=== PATIENT | male | born 1965 | race African-American/Black ===

== ENCOUNTER 2025-03-14 03:05 | Emergency (ER) | payer OTHER, SELFPAY ==
--- NOTE | ~2025-03-14 | CT_ITS ---
CT of the Abdomen and Pelvis: Indication: Abdominal pain Technique: 2.5 mm axial scans were obtained through the abdomen and pelvis following intravenous adm inistration of 100 cc of Omnipaque 350. Dose reduction technique was used on this scan by utilizing a utomated exposure control and iterative reconstruction technique. The dose-length product (DLP) was 6 06.89 mGy-cm. Findings: Scans through the lung bases are unremarkable. The liver, spleen, pancreas, adrenals and kidneys are within normal limits. Cholecystectomy clips are present. There are atherosclerotic calcifications of the aorta. No lymphadenopathy. No bowel obstruction or bowel wall thickening. There is no evidence to suggest acute appendicitis. Images through the pelvis were performed. Urinary bladder unremarkable. No pelvic mass seen. No ascit es. Impression: No significant abnormalities seen. Reviewed, dictated and finalized at [facility]. Impression: No significant abnormalities seen.
--- OUTSIDE RECORDS SUMMARY | 2025-03-14 03:08 | XMS_ITS | Clinical Summary ---
Author Organization [facility] Address [address] [place] [address] Phone Care Team Providers Care Special Skills Officer Name Role Phone Provider, None Primary Care Provider Unavailabl e Provider, None Unavailable Unavailable Allergies Active Allergy Reactions Criticality Noted Date Comments Haloperidol Lactate Other (see Comments) 2015 black out Ibuprofen Rash 10/04/2015 Risperidone Rash 10/03/2015 Medications methocarbamol (ROBAXIN-750) 750 MG Tablet Take 1 Tab by mouth 3 times daily. 30 Tab 0 6 Active Additional Information Patient not taking.Reported on 10/06/2020 cyclobenzaprine (FLEXERIL) 10 MG Tablet Take 1 Tab by mouth 3 times daily as needed for Muscle spasms. 15 Tab 0 6 Active nicotine (NICODERM CQ) 14 MG/24HR PATCH 24 HR 1 Patch by Transdermal route daily. 30 Patch 0 6 Active benztropine (COGENTIN) 1 MG Tablet Take 1 Tab by mouth daily. 60 Tab 0 6 Active Additional Information Patient not taking.Reported on 10/06/2020 sertraline (ZOLOFT) 25 MG Tablet Take 1 Tab by mouth daily. 90 Tab 0 6 Active traZODone (DESYREL) 150 MG Tablet Take 1 Tab by mouth nightly. 30 Tab 0 6 Active venlafaxine (EFFEXOR) 75 MG Tablet Take 1 Tab by mouth 2 times daily. 270 Tab 0 6 Active amitriptyline (ELAVIL) 25 MG Tablet Take 25 mg by mouth nightly. Active QUEtiapine (SEROQUEL) 100 MG Tablet Take 100 mg by mouth nightly. Active QUEtiapine Fumarate (SEROQUEL) 50 MG Tablet Take 50 mg by mouth 2 times daily. Active FLUoxetine HCl 20 MG Tablet Take 20 mg by mouth daily. Active gabapentin (NEURONTIN) 100 MG Capsule Take 100 mg by mouth 3 times daily. Active hydrOXYzine (Vistaril) 25 MG Capsule Take 50 mg by mouth 3 times daily as needed. Active traMADol (ULTRAM) 50 MG Tablet Take 1-2 Tablets by mouth every 6 hours as needed for Moderate or more severe pain or Severe pain. 10 Tablet 1 Active albuterol 108 (90 Base) MCG/ACT Aerosol Solution take 2 Puffs by inhalation every 4 hours as needed. 4 04/18/20 25 Active amLODIPine (NORVASC) 10 MG Tablet Take 10 mg by mouth daily. 2 Active aspirin 81 MG Chewable Tablet Take 81 mg by mouth daily. 9 Active atorvastatin (LIPITOR) 20 MG Tablet Take 20 mg by mouth daily. 2 Active DULoxetine (CYMBALTA) [address] Particles Take 60 mg by mouth daily. Active traMADol (ULTRAM) 50 MG TabletIndicatio ns:Diabetic foot infection (HCC) Take 1 Tablet by mouth every 6 hours as needed for Moderate or more severe pain. 10 Tablet 4 Active Active Problems Problem Noted Date Diagnosed Date Bipolar disease, chronic 10/04/2015 Schizophrenia, schizo-affective 10/04/2015 Tobacco abuse 10/04/2015 Resolved Problems Problem Noted Date Diagnosed Date Resolved Date Pneumonia due to COVID-19 virus 10/07/2020 10/07/2020 Chest pain 10/07/2020 10/07/2020 Overdose 10/04/2015 10/07/2020 Alcohol intoxication 10/04/2015 021 Marijuana abuse 10/04/2015 10/07/2020 Social History Tobacco Use Types Packs/Day Years Used Date Smoking Tobacco: Every Day Cigarettes 0.5 30 Smokeless Tobacco: Never Alcohol Use Standard Drinks/Week Comments Yes 0 (1 standard drink = 0.6 oz pur e alcohol) Sex and Gender Information Value Date Recorded Sex Assigned at Not on file 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 Gender Identity Not on file Sexual Orientation Not on file Last Filed Vital Signs Vital Sign Reading Time Taken Comments Blood Pressure 119/73 06/27/2024 11:30 PM CDT Pulse 69 06/27/2024 10:30 PM CDT Temperature 37 C (98.6 F) 06/27/2024 9:54 PM CDT Respiratory Rate 20 06/27/2024 11:15 PM CDT Oxygen Saturation 100% 06/27/2024 10:30 PM CDT Inhaled Oxygen Concentration - - Weight 74.2 kg (163 lb 9.3 oz) 06/27/2024 9:49 P M CDT Height 172.7 cm (5' 8) 06/27/2024 9:54 PM CDT Body Mass Index 24.87 06/27/2024 9:49 PM CDT Plan of Treatment Health Maintenance Due Date Last Done Comments Hepatitis C Virus (HCV) Screening 1966 Hepatitis B Immunization (1 of 3 - 19+ 3-dose series) 1985 Cologuard 2011 Colonoscopy 2011 Colorectal Cancer Screening 2011 Immunochemical Fecal Occult Blood 2011 Pneumococcal Immunization (50+ years) (2 of 2 - PCV) 05/11/2013 05/11/2012 Zoster Immunization (1 of 2) 02/05/2016 PSA Discussion 2021 SARS-COV-2 Immunization ( season) 2024 08/18/2021, 06/22/2021, 02/07/2021 Influenza Immunization (#1) 05/01/202507/01, 09/08/2021, 07/09/2021, Additional history exists Respiratory Syncytial Virus (RSV) Immunization (Adult) (1 - 1-dose 75+ series) 2041 Pneumococcal Immunization Combined Discontinued 05/11/2012 DTaP/Tdap/Td Immunization Discontinued 2014 TdaP Immunization Completed 2014 Human Papillomavirus (HPV) Immunization Aged Out No longer eligible based on patient's age to complete this topic Meningococcal Immunization (ACWY) Aged Out No longer eligible based on patient's age to complete this topic Rotavirus Immunization Aged Out No lo nger eligible based on patient's age to complete this topic [place] Directives * Full Code (Latest Code Status on File) Date Activated Date Inactivated Comments 10/06/2020 7:22 AM 10/07/2020 1:37 PM CPR-Full Treat ment: FULL ARREST: Attempt Resuscitation/CPR wit intubation and mechanical ventilation. PRE-ARREST: Use entire range of life support measures to stabilize the patient. * Full Code Date Activated Date Inactivated Comments 12/14/2015 11:28 AM 12/15/2015 10:54 PM CPR-Full T reatment: FULL ARREST: Attempt Resuscitation/CPR wit intubation and mechanical ventilation. PRE-ARREST: Use entire range of life support measures to stabilize the patient. * Full Code Date Activated Date Inactivated Comments 10/04/2015 7:40 AM 10/05/2015 5:23 PM Full Code: FULL ARREST: Attempt Resuscitation/CPR and use intubation and mechanical ventilation as indicated. PRE-ARREST: Use all measures to stabilize patient. Care Teams Special Skills Officer Relationship Specialty Start Date End Date Provider, None [place] PCP - General 10/20/15 Provider, None [place] 10/20/15
[2025-03-14 03:11] VITALS: BP 145/95; PULSE 71; RESP 15; TEMP 36.8; O2SAT 100
[2025-03-14 03:25] VITALS: BP 139/98; PULSE 83; RESP 14; O2SAT 99
--- OUTSIDE RECORDS SUMMARY | 2025-03-14 03:50 | XMS_ITS | Clinical Summary ---
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 Care Teams Analytical Data Miner Relationship Specialty Start Date End Date Provider, None [place] PCP - General 10/20/15 Provider, None [place] 10/20/15
[2025-03-14] MEDS: ONDANSETRON INJ 4 MG/2 ML VIAL IV PUSH (03:52)
[2025-03-14] MEDS: MORPHINE SULFATE (*CRX) 4 MG/ML INJ IV PUSH (03:52)
[2025-03-14 03:54] LABS: Hematocrit 43.4 % (42.0-52.0); Hemoglobin 13.7 g/dL (14.0-18.0); Immature Granulocyte Percent A 1.6 % (0-0.5); Lymphocytes Absolute Auto 1.67 K/mm3 (0.9-3.2); Mean Corpuscular HGB Conc 31.6 g/dl (32-36); Mean Corpuscular Hemoglobin 26.4 pg (26-34); Mean Corpuscular Volume 83.6 fl (80-100); Nucleated Red Blood Cells Absolute Auto 0.000 K/mm3 (0.0-0.012); Nucleated Red Blood Cells Perc 0.0 % (0.0-0.2); Platelet Count Result 297 k/mm3 (150-375); Red Blood Count 5.19 M/mm3 (4.6-6.20); White Blood Count 7.1 K/mm3 (4.5-10.0)
[2025-03-14 03:56] LABS: Add Urine Microscopic? NO; Appearance Urine Clear (Clear); Glucose Urine UA 3+ mg/dL (Negative); Leukocyte Esterase Ur Negative LEU/UL (Negative); Nitrate Urine Negative (Negative); Specific Grav Ur 1.019 (1.001-1.035)
[2025-03-14 04:07] LABS: Alanine Aminotransferase 40 U/L (6-50); Albumin Level 4.5 g/dL (3.5-5.1); Alkaline Phosphatase 97 U/L (38-126); Anion Gap 11 mmol/L (4-12); Aspartate Amino Transferase 42 U/L (17-59); Bilirubin,Total 0.3 mg/dL (0.2-1.3); Blood Urea Nitrogen 12 mg/dL (9-20); Calcium 9.7 mg/dL (8.4-10.2); Carbon Dioxide 26 mmol/L (22-30); Chloride 97 mmol/L (98-107); Estimated CRCL calculation 82 ml/min; Estimated Glomerular Filt Rate > 60; Glucose 312 mg/dL (65-110); Lipase 483 U/L (23-300); Magnesium 2.2 mg/dL (1.6-2.3); Potassium 4.4 mmol/L (3.4-5.0); Sodium 134 mmol/L (137-145); Total Protein 8.0 g/dL (6.3-8.2)
--- NOTE | 2025-03-14 04:11 | ED_ITS ---
HPI - Abdominal Pain General Chief Complaint: Abdominal Pain Stated Complaint: sciatic nerve katerina, abd pain, sob due to pain Time Seen by Provider: 03/14/25 03:09 History of Present Illness HPI narrative: Patient is a 60-year-old male who presents emergency department this evening complaining of right hip pain and abdominal pain. Patient states that he was told that his right hip is bone to bone secondary to arthritis and he needs a total hip replacement. States that he took tramadol around midnight with no relief of his pain. Patients abdomen was noted to be distended and when asked regarding this, patient states that it is not new. Admits that he does have a history of pancreatitis secondary to alcohol abuse but denies any history of cirrhosis. Currently denying any chest pain or shortness of breath, recent illness, fevers or chills. There are no additional modifying, alleviating, or precipitating factors at this time. Related Data Allergies Allergy/AdvReac Type Severity Reaction Status Date / Time haloperidol Allergy Mild BLACKOUT Verified 10/25/10 00:45 ibuprofen Allergy Mild RASH Verified 10/25/10 00:45 risperidone Allergy Mild PANCREATITI Verified 10/25/10 00:45 S HALOPERIDOL LACTATE Allergy Mild BLACKOUT Uncoded 10/25/10 00:45 Review of Systems 2 Review of Systems: All systems are reviewed and are negative unless stated otherwise in the HPI. Exam 2 Narrative: General: Alert, awake, afebrile, in no acute distress. HEENT: PERRL, no rhinorrhea, no post nasal drip, oropharynx clear. Neck: Trachea midline, no JVD, no lymphadenopathy. Cardiovascular: Regular rate and rhythm, no murmurs, rubs or gallops, no peripheral edema. Respiratory: Clear to auscultation bilaterally, no tachypnea, no wheezing, no rhonchi, no rubs, no respiratory distress. Abdomen: Hard, nontender, distended, no rebound, no guarding, no peritoneal signs. Musculoskeletal: No joint swelling or deformity, normal muscle tone. Skin: No rashes or petechia, no signs of infection. Psychiatric: Alert and oriented, normal behavior and judgment for situation. Neurological: Alert and oriented to person, place, and time. Follows all commands. No focal deficits, speech is clear and fluent. Course Vital Signs Vital signs: Vital Signs Temperature 98.3 F 03/14/25 03:11 Pulse Rate 71 07/15/25 03:11 Respiratory Rate 15 03/14/25 03:11 Blood Pressure 145/95 H 03/14/25 03:11 Pulse Oximetry 100 03/14/25 03:11 Oxygen Delivery Room Air 03/14/25 03:11 Temperature 98.3 F 03/14/25 03:11 Pulse Rate 87 03/14/25 04:46 Respiratory Rate 17 03/14/25 04:46 Blood Pressure 138/86 03/14/25 04:46 Pulse Oximetry 99 03/14/25 04:46 Oxygen Delivery Room Air 03/14/25 03:11 MDM - Abdominal Pain MDM Narrative Medical decision making narrative: The patient was evaluated by myself in the emergency department. History is obtained from patient who is an independent historian and physical exam was performed. External medical records were reviewed at this time. IV was established and pertinent tests were ordered. Patient was administered 4 mg IV morphine for pain and 4 mg of IV Zofran for nausea. Laboratory results obtained revealing lipase of 483 otherwise unremarkable. Imaging studies obtained included CT abdomen and pelvis with IV contrast which was independently interpreted by me revealing no acute process, no fractures noted in the pelvis, which is pending final radiology interpretation. Differential diagnosis considerations include arthritis, sciatica, pancreatitis, bowel obstruction, liver failure ascites cirrhosis with ascites. Comorbidities impacting this visit include history of alcohol abuse. I have evaluated and discussed social determinants of health with the patient that could potentially impact subsequent diagnosis and treatment plans. On repeat assessment of the patient, reevaluation revealed that the patient is doing well and is in no acute distress. Patient symptoms have improved since he arrived to our emergency department. Repeat vital signs were all reviewed and noted to be stable. Differential diagnosis and treatment plan were discussed with the patient at bedside. Patient agrees with discussion and after shared medical decision making agrees with discharge. All questions were answered to the patient's satisfaction. Patient will follow up with Orthopedics in 3-5 days. Patient was provided with strict return precautions and instructed to return to the emergency department if any new or worsening symptoms develop. The patient was discharged in stable condition. Lab Data 03/14/25 03:32 03/14/25 03:32 Labs: Lab Results 03/14/25 03/14/25 Range/Units 03:32 03:43 WBC 7.1 (4.5-10.0) K/mm3 RBC 5.19 (4.6-6.20) M/mm3 Hgb 13.7 L (14.0-18.0) g/dL Hct 43.4 (42.0-52.0) % MCV 83.6 (80-100) fl MCH 26.4 (26-34) pg MCHC 31.6 L (32-36) g/dl RDW 16.3 H (11.5-14.5) % Plt Count 297 (150-375) k/mm3 MPV 10.6 H (7.4-10.4) fl Immature Gran % (Auto) 1.6 H (0-0.5) % Neut % (Auto) 58.8 (45.5-73.1) % Lymph % (Auto) 23.6 (18.3-44.2) % Porter % (Auto) 12.9 H (2.6-8.5) % Eos % (Auto) 2.7 (0-4.4) % Baso % (Auto) 0.4 (0.2-1.2) % Lymph # (Auto) 1.67 (0.9-3.2) K/mm3 Porter # (Auto) 0.9 H (0.1-0.6) K/mm3 Eos # (Auto) 0.2 (0-0.3) K/mm3 Baso # (Auto) 0.0 (0.0-0.1) K/mm3 Abs Immat Gran (auto) 0.11 H (0.00-0.031) K/mm3 Absolute Neuts (auto) 4.2 (1.3-6.7) K/mm3 Absolute Nucleated RBC 0.000 (0.0-0.012) K/mm3 Nucleated RBC % 0.0 (0.0-0.2) % Sodium 134 L (137-145) mmol/L Potassium 4.4 (3.4-5.0) mmol/L Chloride 97 L (98-107) mmol/L Carbon Dioxide 26 (22-30) mmol/L Anion Gap 11 (4-12) mmol/L BUN 12 (9-20) mg/dL Creatinine 0.85 (0.7-1.3) mg/dL Estim Creat Clear Calc 82 ml/min Estimated GFR > 60 (59 - ) Glucose 312 H (65-110) mg/dL Calcium 9.7 (8.4-10.2) mg/dL Magnesium 2.2 (1.6-2.3) mg/dL Total Bilirubin 0.3 (0.2-1.3) mg/dL AST 42 (17-59) U/L ALT 40 (6-50) U/L Alkaline Phosphatase 97 (38-126) U/L Total Protein 8.0 (6.3-8.2) g/dL Albumin 4.5 (3.5-5.1) g/dL Lipase 483 H (23-300) U/L Urine Color Yellow (Yellow) Urine Appearance Clear (Clear) Urine pH 5.5 (5.0-9.0) Ur Specific [place] 1.019 (1.001-1.035) Urine Protein Negative (Negative) mg/dL Urine Glucose (UA) 3+ H (Negative) mg/dL Urine Ketones Negative (Negative) mg/dL Ur Blood (Man) Negative (Negative) Urine Nitrate Negative (Negative) Urine Bilirubin Negative (Negative) Urine Urobilinogen 1.0 (<2.0) mg/dL Leukocyte Esterase Rfl Negative (Negative) ALAN/UL Discharge Plan Discharge Clinical Impression: Chronic right hip pain, Abdominal pain Patient Disposition: Home Condition: Improved Instructions: Antibiotic Form, Abdominal Pain (ED), Hip Pain (ED) Additional Instructions: Please follow-up with your orthopedic surgeon you were provided with today within the next 3-5 days. Return emergency department if any new or worsening symptoms develop. Patient Language: Hebrew Prescriptions: New hydrocodone-acetaminophen 5-325 mg tablet 1 tablet PO Q8H PRN (Reason: pain) Qty: 8 0RF Follow-up/Referrals: PHYSICIAN,DEPARTMENT MANAGER [Primary Care Provider] - Beau Wooten MD [Physician] - 3 Days Time of Disposition: 05:41
[2025-03-14 04:46] VITALS: BP 138/86; PULSE 87; RESP 17; O2SAT 99
[2025-03-14 06:10] VITALS: BP 138/86; PULSE 87; RESP 17; O2SAT 99
== END 2025-03-14 06:12 | disposition home or self-care (01) ==
PROVIDERS: Emergency Provider Emergency Medicine
DX: M25.551 Pain in right hip (principal); R10.9 Unspecified abdominal pain; M16.11 Unilateral primary osteoarthritis, right hip
CPT/HCPCS: 36415; 74177; 80053; 81003; 83690; 83735; 85025; 96374; 96375; 99284; J2270; J2405; Q9967

== ENCOUNTER 2025-05-23 10:59 | Emergency (ER) | payer OTHER, SELFPAY ==
--- NOTE | ~2025-05-23 | XR_ITS ---
EXAMINATION: XR chest 1V, 05/23/2025 11:50 CDT HISTORY: Fall COMPARISON: No comparisons available. Technique: Single view. Findings: The lungs are clear, no effusion. No pneumothorax. Heart is normal size. Mediastinal and hilar contours are within normal limits. Bony thorax no acute abnormality. Impression: No acute cardiopulmonary abnormality. Reviewed, dictated and finalized at location A. Impression: No acute cardiopulmonary abnormality.
--- NOTE | ~2025-05-23 | CT_ITS ---
CT HEAD NON-CONTRAST Clinical History: Fall Comparison: None Technique: Unenhanced axial images skull base to vertex Coronal, sagittal reformats CT images acquired with automatic exposure control for dose reduction DLP: 605 mGy-cm Findings: Sulci, ventricles: Unremarkable. No intracerebral hemorrhage. No evidence acute territorial infarct. No mass effect, midline shift. Bony calvarium intact. Visualized paranasal sinuses: Ethmoid disease. Mastoid air cells: Clear. IMPRESSION: 1. No acute intracranial findings. Reviewed, dictated and finalized at location R.
--- NOTE | ~2025-05-23 | XR_ITS ---
EXAMINATION: XR hip RT 2V w AP pelvis, 05/23/2025 11:50 CDT HISTORY: Fall, hip deformity COMPARISON: No comparisons available. Findings: No acute fracture or malalignment. No significant degenerative changes. Soft tissues unremarkable. Impression: No acute fracture or malalignment. Reviewed, dictated and finalized at location A. Impression: No acute fracture or malalignment.
--- NOTE | ~2025-05-23 | CT_ITS ---
EXAMINATION: CT cervical spine wo con COMPARISON: None HISTORY: Fall TECHNIQUE: Axial images were obtained through the spine without IV contrast. Coronal, sagittal reconstruction images were obtained from the axial views. CT scan performed using dose optimization techniques including the following automated exposure control; adjustment of mA and/or kV; use of iterative reconstruction technique. Automatic exposure control was used to reduce radiation dose. Permanent radiation dose record is archived to PACS. FINDINGS: Moderate loss of vertebral height, no acute fracture or subluxation. Moderate loss of disc height at C2-3, C4-5 C5-6 with anterior osteophyte formation with multilevel mild to moderate canal and foraminal stenosis. Soft tissues unremarkable. Nonspecific thickening of the esophagus noted. There is emphysematous change noted of the lung apices bilaterally with bilateral areas of apical pleural scarring. Impression: No acute abnormality. Reviewed, dictated and finalized at location A. Impression: No acute abnormality.
[2025-05-23 11:05] VITALS: BP 152/93; PULSE 81; RESP 17; TEMP 36.6; O2SAT 98
[2025-05-23 11:16] VITALS: BP 149/90; PULSE 87; RESP 16; TEMP 36.6; O2SAT 96
--- OUTSIDE RECORDS SUMMARY | 2025-05-23 11:46 | XMS_ITS | Encounter Summary ---
Author Organization [facility] Address [address] [place] [address] Care Team Providers Care Low Altitude Air Defense Officer Name Role Phone Fabian Philip MD Unavailable [phone] Jose Gaines MD Primary Care Provider [phone] Janeth Galeano Unavailable Unavailable Miscellaneous, Not In File Unavailable Unava ilable Miscellaneous, Not In File Primary Care Provider Unavailable No, Physician Primary Care Provider [phone] Miscellaneous, Not In File Primary Care Provider Unavailable Unknown, Notinfile Primary Care Provider Unavail able Bonnie Mg TOPOLOGY PROFESSOR Primary Care Provider [phone] Jose Gaines MD Primary Care Provider [phone] Unknown, Notinfile Primary Care Provider Unavail able Rich Joiner TOPOLOGY PROFESSOR Primary Care Provider + [phone] No, Physician Primary Care Provider [phone] Jeovany Rabago MD Primary Care Provider [phone] Encounter Details Date Type Department Care Team (Late st Contact Info) Description 09/25/2020 Documentation [facility] [address] [place] [id number] Hemalatha Pollack, JOIE Social History Tobacco Use Types Packs/Day Years Used Date Smoking Tobacco: Every Day Cigarettes 0.1 15 Smokeless Tobacco: Never Alcohol Use Standard Drinks/Week Comments Yes 12 (1 standard drink = 0.6 oz pure alcohol) Patient reports he drinks a pint of vodka daily along with 4 28oz cans of malt liquor beer Social Connection and Isolation Panel Answer Date Recorded In a typical week, how many times do you talk on the phone with family, friends, or neighbors? Three times a week 10/30/2019 How often do you get togethe r with friends or relatives? Three times a week 10/30/2019 How often do you attend chur ch or denominational services? More than 4 times per year 10/30/2019 Do you belong to any clubs o r organizations such as zoroastrian groups, unions, fraternal or athletic groups, or school groups? Yes 10/30/2019 How often do you attend meet ings of the clubs or organizations you belong to? More than 4 times per year 10/30/2019 Are you , , di vorced, , never , or living with a partner? Never 10/30/2019 AUDIT-C Answer Date Recorded Frequency of Alcohol Consumption Not on file 10/30/2019 Q2: How many drinks containi ng alcohol do you have on a typical day when you are drinking? 7 to 9 0 Q3: How often do you have si x or more drinks on one occasion? Daily or almost daily 10/30/2019 Overall Financial Resource Strain (CARDIA) Answe r Date Recorded How hard is it for you to pa y for the very basics like food, housing, medical care, and heating? Very hard 10/30/2019 PHQ-2 Answer Date Recorded PHQ-2 Total Score (If total score is 3 or more points, staff should administer the PHQ-9) 0 09/27/2020 Hunger Vital Sign Answer Date Recorded Within the past 12 months, y ou worried that your food would run out before you got the money to buy more. Often true 10/30/19 20 Within the past 12 months, t he food you bought just didn't last and you didn't have money to get more. Often true 10/30/2019 PRAPARE - Transportation Answer Date Re corded In the past 12 months, has l ack of transportation kept you from medical appointments or from getting medications? Yes 08/2019 In the past 12 months, has l ack of transportation kept you from meetings, work, or from getting things needed for daily living? Yes 10/30/2019 Education Answer Date Recorded What is the highest level of school you have completed or the highest degree you have received? 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 Patient has had documented SpO2 < 94% and required supplemental oxygen. Based on the original positive testing date the patient is first eligible for COVID:Recovered evaluation on 10/02/20. Unable to determine reason for initial testing from current documentation. ELIZA Taylor 09/15/2020 09/15/2020 10/12/2020 3 :05 AM DISCHARGE SPECIALIST COVID: Recovered Comment:Added based on recent COVID infection. 10/12/2020 11/29/2020 02/09/2021 3:05 AM C DT COVID: Suspected 07/15/2021 07/15/2021 07/15/2021 11:09 PM DISCHARGE SPECIALIST COVID: Suspected 09/07/2021 09/07/2021 09/07/2021 2:48 AM DISCHARGE SPECIALIST COVID: Suspected 04/08/2024 04/08/2024 04/08/2024 7:50 AM CDT COVID: Suspected 04/18/2024 04/18/2024 04/18/2024 3:51 AM CDT documented as of this encounter Care Teams Low Altitude Air Defense Officer Relationship Specialty Start Date End Date Jose Gaines MD PCP - General 03/07/19 11/28/20 Miscellaneous, Not In File PCP - General 11/29/20 04/16/21 No, Physician PCP - General 04/17/21 07/14/21 Miscellaneous, Not In File PCP - General 07/15/21 07/16/21 Unknown, Notinfile PCP - General 07/17/21 07/21/21 Bonnie Mg NP [address] [place] [address] PCP - General 07/22/21 09/06/21 Jose Gaines MD PCP - General 09/07/21 12/15/21 Unknown, Notinfile PCP - General 12/16/21 09/28/22 Rich Joiner TOPOLOGY PROFESSOR [address] [facility] [place] [address] PCP - General Pain Management 09/29/22 04/12/25 No, Physician PCP - General 04/13/25 05/02/25 Jeovany Rabago MD [address] [facility] [place] [address] PCP - General Internal Medicine 05/03/25 Fabian Philip MD Consulting Physician Gastroenterology 08/25/18 Janeth Galeano Photovoltaic Panel Installer Addiction Medicine 08/21/20 Miscellaneous, Not In File 09/28/20 documented as of this encounter
--- OUTSIDE RECORDS SUMMARY | 2025-05-23 11:46 | XMS_ITS | Clinical Summary ---
Author Organization [facility] Address [address] [place] [address] Care Team Providers Care Dramatic Director Name Role Phone Fabian Philip MD Unavailable Janeth Galeano Unavailable Unavailable Miscellaneous, Not In File Unavailable Unava ilable Jeovany Rabago MD Primary Care Provider [phone] Allergies Active Allergy Reactions Criticality Noted Date Comments Haloperidol Ibuprofen Hives,Rash Medium Risperidone Unknown 08/04/2018 Medications amLODIPine (NORVASC) 10 mg tabletIndicati ons:hypertensi on Take 1 tablet (10 mg total) by mouth daily 30 tablet 2 Active atorvastatin (LIPITOR) 20 mg tabletIndicati ons:hyperlipid emia Take 1 tablet (20 mg total) by mouth daily 30 tablet 11 2 Active traZODone (DESYREL) 100 mg tabletIndicati ons:Insomnia Take 1 tablet (100 mg total) by mouth nightly as needed for sleep 30 tablet 2 Active nicotine polacrilex (NICORETTE) 2 mg gumIndications :Smoking Cessation Chew 1 each (2 mg total) every hour as needed for smoking cessation [address] (CYMBALTA) 60 mg capsule Take 1 capsule (60 mg total) by mouth daily Active lidocaine (LIDODERM) 5 % Place 1 patch on the skin daily Remove & discard patch within 12 hours or as directed by MD. Active gabapentin (NEURONTIN) 300 mg capsule Take 1 capsule (300 mg total) by mouth 2 (two) times a day 4 Active OLANZapine (ZyPREXA) 10 mg tablet Take 1 tablet (10 mg total) by mouth nightly at bedtime. 4 Active lidocaine (LIDODERM) 5 % Place 1 patch on the skin daily Remove & discard patch within 12 hours or as directed by . 20 patch 4 Active albuterol HFA (PROVENTIL HFA,VENTOLIN HFA,PROAIR HFA) 90 mcg/actuation inhaler Inhale 2 puffs every 4 (four) hours as needed for shortness of breath or wheezing 1 each 4 Active traMADoL (ULTRAM) 50 mg tabletIndicati ons:Pain Take 1 tablet (50 mg total) by mouth every 6 (six) hours as needed for pain for up to 3 doses 3 tablet 4 Active metFORMIN (GLUCOPHAGE) 500 mg tablet Take 1 tablet (500 mg total) by mouth 2 (two) times a day with meals 60 tablet 4 Active acetaminophen- codeine (TYLENOL with CODEINE #3) 300-30 mg per tabletIndicati ons:Right wrist sprain, initial encounter Take 1 tablet by mouth every 6 (six) hours as needed for pain Take as directed with food p.r.n. pain. Collaborating physician Dale Devries MD 15 tablet 4 Active Active Problems Problem Noted Date Diagnosed Date Right wrist sprain, initial encounter 06/13/2024 Elevated serum creatinine 04/01/2024 Assessment & Plan (04/01/2024 4:48 AM CDT): - unclear what his baseline Cr is. Most recent Cr in our system is from October 2022, was 0.83 at that time. In care everywhere, labs from October 2023 showed creatinine 1.2 - UA showing 4+ glucose but no other abnormalities - will check urine sodium and urine creatinine along with renal ultrasound - start IV fluids with NS 100 mL/hr - trend BMP Right hip pain 04/01/2024 Assessment & Plan (04/01/2024 4:48 AM CDT): - chronic, x-ray showing severe OA Stimulant use disorder 12/18/2021 Assessment & Plan (12/19/2021 10:21 AM CDT): Patient has a well known hx of stimulant use including meth and cocaine. He has use more and longer than intended, tolerance, craving, withdrawal sx, negative effects on his wellbeing and continued use despite knowledge of effects. He has failed attempts to quit. He now denies using stimulants, despite confronting his with his UDS results. - we will offer psycho-education and VA for cessation Assessment & Plan (12/18/2021 2:38 PM CDT): Patient has a well known hx of stimulant use including meth and cocaine. He has use more and longer than intended, tolerance, craving, withdrawal sx, negative effects on his wellbeing and continued use despite knowledge of effects. He has failed attempts to quit. He now denies using stimulants, despite confronting his with his UDS results. - we will offer psycho-education and VA for cessation Somnolence 09/15/2020 Assessment & Plan (04/01/2024 4:49 AM CDT): - unclear why he is so somnolent and immediately falls back to sleep after awakening. He received 1 dose of Dilaudid shortly after arriving to ED but no other sedating medicines. Does not appear to be in DKA - check VBG, urine drug screen Assessment & Plan (09/15/2020 9:26 AM DIE [employer]K[facility] [employer]AMPING): Cause not yet clear, but likely related to benzodiazepine use as patient's urine drug screen was positive for this along with marijuana. Notably ethanol level was undetectable. Will attempt to obtain records from [facility] about recent stay as patient is unable to provide a history about what was done there or what occurred after he was discharged shortly before being brought to the ED. There may also be fatigue due to COVID-19 contributing to symptoms as well. NSVT (nonsustained ventricular tachycardia) 07/31 Assessment & Plan (04/01/2024 4:48 AM CDT): - stable now, unclear if patient takes metoprolol at home Nonobstructive atherosclerosis of coronary arter y 08/15/2020 Severe alcohol use disorder 01/31/2020 Assessment & Plan (12/19/2021 10:20 AM CDT): Patient has a hx of alcohol use with use more and longer than intended, tolerance, craving, withdrawal sx (no known DTs or seizures), negative use on his wellbeing and continued use despite knowledge of effects. He has failed attempts to quit. - continue GUILLE and treat withdrawal as needed - thiamine and FA PO every day - appreciate SW assistance for SIENNA tx options Assessment & Plan (12/18/2021 2:32 PM CDT): Patient has a hx of alcohol use with use more and longer than intended, tolerance, craving, withdrawal sx (no known DTs or seizures), negative use on his wellbeing and continued use despite knowledge of effects. He has failed attempts to quit. - start GUILLE and treat withdrawal as needed - thiamine and FA PO every day - appreciate SW assistance for SIENNA tx options Common bile duct calculus 06/26/2019 Overview (06/28/2019): Added automatically from request for surgery [id number] Substance induced mood disorder (CMS/HCC) 2018 Assessment & Plan (12/19/2021 10:20 AM CDT): Fair progress PLAN - continue voluntary admission - treat alcohol withdrawal as needed - observe on the unit and adjust the plan as needed - appreciate SW and medical team recs Assessment & Plan (12/18/2021 2:17 PM CDT): Mr. Cruz is a 56 yo M with a hx of meth and cocaine use disorders, alcohol use disorder, ASPD, admitted for reports SI. Patient has a well documented hx of substance use, including alcohol, cocaine and meth, with past admission for SI, thought to be related to substance use and malingering as opposed to a mood dx. He now reports feeling agitated, having SI and HI, both non specific with no plan or intent, and feeling psychotic, which he describes as having full interactive conversations with people, non consistent with true psychosis. He does not have objective signs of psychosis on exam and has no evidence of disorganized thought process or behaviors. His irritability is consistent with substance induced sx versus his well documented personality disorder (ASPD). We will assign the diagnosis of substance induced mood disorder for now. Risk assessment: patient has recent SI. Admission is appropriate. PLAN - continue voluntary admission - we will no start standing medications at this time - treat alcohol withdrawal as needed - observe on the unit and adjust the plan as needed - appreciate SW and medical team recs Alcohol withdrawal syndrome without complication 11/02/2018 Assessment & Plan (11/03/2018 10:45 PM [facility] [facility] [employer]): Currently admitted for detox Assessment & Plan (11/02/2018 1:22 PM DIE [employer]AMPING): . Antisocial personality disorder (CMS/HCC) 2018 Assessment & Plan (04/01/2024 4:44 AM CDT): - unclear if adherent to treatment Assessment & Plan (12/19/2021 10:20 AM CDT): Patient has well documented hx of ASPD with a chronic and pervasive hx of mood reactivity and irritability, behavioral dysregulation, inability to conform to social norms and disregard for safety of self and others with no remorse. He now has manipulative behaviors and attitude on exam. He threatens to strangle people but does not have specific target. He reports that things will be ugly if he doesn't get what he wants. This is consistent with his ASPD. Assessment & Plan (12/18/2021 2:29 PM CDT): Patient has well documented hx of ASPD with a chronic and pervasive hx of mood reactivity and irritability, behavioral dysregulation, inability to conform to social norms and disregard for safety of self and others with no remorse. He now has manipulative behaviors and attitude on exam. He threatens to strangle people but does not have specific target. He reports that things will be ugly if he doesn't get what he wants. This is consistent with his ASPD. Assessment & Plan (10/31/2019 8:58 AM D[employer]AMPING): Well documented ASPD. His poor coping skills, manipulative behaviors are difficult to modify due to his ASPD. Assessment & Plan (09/10/2018 2:21 PM DIE [employer]AMPING): This patient has a childhood history consistent with conduct disorder, evidenced by fighting, stealing, juvenile mcc stints, and a lack of remorse for his actions. This has developed into a history of ASPD, both by report and public records detailing his extensive sentences in the [facility] system for attempted murder and assault. He continues to have no remorse for his actions despite violating the rights of others. On his past and present hospitalizations, we have exhaustively documented in the H&P his history of deceitfulness, impulsivity, failure to plan ahead, irritability, and aggression. This culminates in reckless disregard for the safety of others, evidenced by his threats during interview today that if he does not get what he wants, he will do destructive things and injure people. The patient is clearly motivated by secondary gain today (longterm, abusable medications he can use to overdose on to achieve future secondary gain objectives). We have reviewed all of his many ED visits in our hospital system. He exhibits no convincing symptoms of delusions, hallucinations, or disorganized thought/behavior on admission. There is no convincing evidence of sustained poor mood, insomnia, anergia, amotivation, guilt, or concentration deficits explained by MDD on the present admission or in past medical records in the [facility] system. There is also no convincing evidence of sustained increase in energy, irritability, racing thoughts, grandiosity, and decreased perceived need for sleep consistent with justice. We thus believe that antisocial personality disorder (ASPD) is the primary etiology for the patient's presentation to [facility], for which there is no successful medical treatment. Psychotherapeutic and psychopharmacologic agents have been demonstrated to have limited efficacy, and there is also no evidence for short inpatient psychiatric admission (which [facility] is equipped to offer) playing any significant role in modifying the patient's psychopathology. The patient presently has no motivation in stopping his maladaptive behaviors apart from blaming others, making continued threats to his medical team (I.e., to harm others, to kristina his doctors for abuse), and seeking medications that he could potentially use to overdose. We believe that there is risk of reinforcing the patient's behavior and deceitfulness (which is likely to pose harm to the staff and [facility] population [facility]) is greater than the minimal benefit the patient will receive from remaining hospitalized. He is NOT appropriate for continued inpatient admission. He has agreed to discharge at this time via taxi to Medicaid office at [place], [place] and has been educated about longterm resources, as well as behavioral health resources at [facility]. Risk Assessment: At this time, the patient is at HIGH acute risk of harm to self and others. His chronic risk is HIGH as well. Biological risk factors including severe personality pathology (ASPD), substance use, chronic assaultive and suicidal ideation, extensive childhood abuse/trauma, incarceration history, unemployment, homelessness, and overall chronic social instability. While he presently has not exhibited any signs or symptoms of self-harm with clear plan, the patient's impulsivity could certainly lead him to escalate lethality (possibly inadvertently) in the future. Plan: -We will discharge patient today via taxi given inclement weather -Coordinate outpatient care with [facility] -No indication for psychiatric medications at this time Intentional overdose of salina ctive serotonin reuptake inhibitor (SSRI) 07/21/2018 Assessment & Plan (07/21/2018 12:53 AM DIE MAK[facility] [employer]AMPING): Patient took 12 Lexapro pills. He is not currently suicidal. He states he does have suicidal thoughts on and off. Continue with suicide precautions. Psych has been consulted will await their recommendations. Continue to monitor. Poison Control is aware of patient. Chronic back pain 07/21/2018 Assessment & Plan (08/21/2018 10:16 PM DIE MAKER [employer] STAMPING): Holding any sedating medications including tramadol Assessment & Plan (07/21/2018 12:46 AM DIE MAK[employer]AMPING): Patient is allergic to ibuprofen. He states it gives him a rash. Patient states he takes tramadol normally for his back pain. Will offer patient heating pad for now to see if his pain improves. Patient is okay with this plan. Type 2 diabetes mellitus wit h hyperglycemia, without long-term current use of insulin 07/21/2018 Assessment & Plan (04/01/2024 4:50 AM CDT): - there are no diabetic medications in his dispense report. He denies ever taking insulin - will check A1c - sliding scale Humalog for now Assessment & Plan (09/15/2020 9:46 AM DIE [employer] STAMPING): Start sliding scale insulin and monitor glucose, can basal/bolus regimen if necessary. Assessment & Plan (11/03/2018 10:46 PM DIE MAKER [employer]CH STAMPING): Agree with SS coverage Assessment & Plan (08/21/2018 10:07 PM DIE MAKER [employer]CH STAMPING): Patient on metformin. Will start on low dose SS. Assessment & Plan (08/06/2018 4:14 AM DIE MA[employer] STAMPING): Will hold oral hypoglycemics. Patient is currently NPO Start on low-dose insulin sliding scale Assessment & Plan (07/21/2018 12:43 AM DIE MAKER [employer]CH STAMPING): Patient takes metformin. Sugars are controlled. Continue monitor on low-dose sliding scale. Hypertension Assessment & Plan (05/23/2020 4:18 PM CDT): Blood pressure presently acceptable. Will continue home metoprolol. Will monitor. Adjust treatment as needed. 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 Unable to assess for symptoms because of patient somnolence, but he has developed a fever. Good SpO2 on room air, will monitor respiratory function. Hyponatremia 09/15/2020 12/18/2021 Assessment & Plan (09/15/2020 9:31 AM DIE MAK[employer] STAMPING): Most likely hypovolemic, will start maintenance IV fluids while he is extremely somnolent and unable to take p.o. intake. Continue to monitor. Volume depletion 09/15/2020 12/18/2021 Depression 09/15/2020 12/18/2021 Assessment & Plan (09/15/2020 9:49 AM DIE MAKER [employer]CH STAMPING): Home medication list does not include the trazodone, Zyprexa, Effexor, and Atarax that he was prescribed prior to his last admission at [facility] after he was admitted for an intentional overdose. It is unknown if these medications have been restarted since that time (he was discharged directly to [facility] after 24 hours for observation that time) or if these medications and/or doses have changed since then. Will attempt to obtain records from [facility]. Suicide attempt ([facility]) 08/15/2020 Marijuana use 01/31/2020 12/18/2021 Choledocholithiasis 06/19/2019 12/19/19 22 Alcohol abuse 06/19/2019 12/18/2021 Assessment & Plan (05/23/2020 4:17 PM CDT): Known history of alcohol abuse. Patient with positive alcohol level on presentation. Will monitor for any signs of withdrawal. Will treat as needed. Pneumonia due to infectious organism 11/03/2018 12/18/2021 Assessment & Plan (11/03/2018 10:45 PM DIE MAKER [employer]CH STAMPING): Agree with treatment for CAP. However, pt has risk for aspiriation, flagyl added and ST ordered. Thank you for the consult, will follow pt with you Exposure to environmental co ld, initial encounter 09/27/2018 12/18/2021 Right foot sprain, initial encounter 09/27/2018 12/18/2021 Hallux valgus, right 09/27/2018 022 Polysubstance abuse ([facility]) 07/21/2018 12/18/2021 Assessment & Plan (05/23/2020 4:17 PM CDT): Urine drug screen positive for benzodiazepines and cannabinoids. Patient with suicide attempt as noted above. Will continue to monitor. Await psychiatry consultation. Assessment & Plan (10/31/2019 8:58 AM DIE MAKER BENCH STAMPING): Patient requires Rehab. Assessment & Plan (08/21/2018 10:15 PM DIE MAKER BENCH STAMPING): Patient denies any street drug use however when asked why urine drug screen is positive for marijuana and cocaine patient states he might have used some when he was depressed. He states he would likely of smoked it. He does not remember when he used it. Assessment & Plan (08/06/2018 4:13 AM DIE MAKER [employer]ENCH STAMPING): Patient with a history of polysubstance abuse. Urine drug screen positive for cocaine metabolites and cannabinoids. Start on Ativan as needed for withdrawal symptoms Assessment & Plan (07/21/2018 12:44 AM DIE MAKER [employer]CH STAMPING): Patient admits to marijuana and crack cocaine use yesterday. Transaminitis 07/21/2018 12/18/2021 Assessment & Plan (08/06/2018 4:15 AM DIE MA[employer] STAMPING): Slightly elevated AST levels noted. Monitor liver function tests Poison Control services on board. Supportive care Assessment & Plan (07/21/2018 12:43 AM DIE [employer]AMPING): Likely due to alcohol use. Patient had 48 oz of beer with 2 shots of whiskey yesterday. Will continue to monitor. Will check a GGT and hepatitis panel. Generalized anxiety disorder 12/04/2013 12/18/2021 Intentional drug overdose Assessment & Plan (05/23/2020 4:16 PM CDT): Intentional overdose of venlafaxine and Zyprexa as noted above. Will continue to monitor. Poison control following. Assessment & Plan (08/21/2018 10:19 PM DIE MAK[employer] STAMPING): Patient states he took 13-14 tabs of Zyprexa that was left over medication from the past. He states he is still having thoughts of suicide. Currently has a health safety specialist at bedside. Will consult psych. Poison Control was notified and recommended repeat EKG to monitor QTC. If normal, no further workup needed from their point of view. Assessment & Plan (08/06/2018 4:16 AM DIE MAK[employer]CH STAMPING): Patient presents today with recurrent suicide attempt by drug ingestion. Currently somnolent. Will get psych evaluation Suicide precautions Suicide attempt by drug ingestion 12/18/2021 Assessment & Plan (05/23/2020 4:16 PM CDT): Intentional overdose of Zyprexa and venlafaxine. Poison control contacted. Patient currently on telemetry with no current changes. Initial EKG did have some QT prolongation. Did receive IV bicarb per poison control recommendation. Will continue suicide precautions. Psychiatry consulted and await consult. Will need psychiatric placement. Non-traumatic rhabdomyolysis 12/18/2021 Assessment & Plan (08/21/2018 10:16 PM DIE MAKER [employer]CH STAMPING): Patient is receiving IV fluids. CK is trending down. Continue to monitor. Acute kidney injury (CMS/HCC) 12/18/2021 Lactic acid acidosis 022 Rash 12/18/2021 Assessment & Plan (05/23/2020 4:18 PM CDT): Appears to be more dry skin at this point on neck and right forearm. Will use triamcinolone cream. Will monitor. Hypoglycemia 12/18/2021 Fall at home, initial encounter 12/18/2021 Pain and swelling of knee, left 12/18/2021 Encounters Date Type Department Care Team Description 04/13/2025 9:58 AM CDT - 04/13/2025 11:36 AM CDT Emergency [facility] Emergency Department [address] [id number] Jose Eduardo Mack MD Right hip pain (Primary Dx) Discharge Disposition: Discharge to home or self care from Last 3 Months Immunizations Immunization Administration Dates Next Due Influenza, Quadrivalent, Spl it, Preservative Free, Intramuscular 09/08/2021,06/23/2016 Influenza, Trivalent, IM (MDV) 10/01/2015 Influenza, Unspecified 08/31/2020 Pfizer SARS-CoV-2 Monovalent Vaccination (12+ Yrs) PURPLE 08/18/2021 Surgical History Surgery Date Site/Laterality Comments CHOLECYSTECTOMY Medical History Medical History Date Comments Diabetes mellitus (HCC) Hypertension Back pain ETOH abuse Mental and behavioral problem in adult Depression HLD (hyperlipidemia) Social History Tobacco Use Types Packs/Day Years Used Date Smoking Tobacco: Former Cigarettes 0.5 15 1 - 05/31/2021 Smokeless Tobacco: Never Tobacco Cessation:Counseling Given: Not Answered Alcohol Use Standard Drinks/Week Comments Not Currently 12 (1 standard drink = 0.6 oz pure alcohol) Patient reports he drinks a pint of vodka daily along with 4 28oz cans of malt liquor beer Social Connection and Isolation Panel Answer Date Recorded In a typical week, how many times do you talk on the phone with family, friends, or neighbors? Three times a week 12/19/19 How often do you get togethe r with friends or relatives? Three times a week 12/18/2021 How often do you attend [facility] or christianity services? Never 12/18/2021 Do you belong to any clubs o r organizations such as hinduism groups, unions, fraternal or athletic groups, or school groups? No 12/18/2021 How often do you attend meet ings of the clubs or organizations you belong to? 1 to 4 times per year 12/18/2021 Are you , , di vorced, , never , or living with a partner? Never 12/18/2021 AUDIT-C Answer Date Recorded Q1: How often do you have a drink containing alc ohol? 2-3 times a week 08/19/2021 Q2: How many drinks containi ng alcohol do you have on a typical day when you are drinking? 3 or 4 08/19/2021 Q3: How often do you have si x or more drinks on one occasion? Less than monthly 08/19/2021 Overall Financial Resource Strain (CARDIA) Answe r Date Recorded How hard is it for you to pa y for the very basics like food, housing, medical care, and heating? Not very hard 12/18/2021 PHQ-2 Answer Date Recorded PHQ-2 Total Score (If total score is 3 or more points, staff should administer the PHQ-9) 0 09/27/2020 [facility] - Occupational Stress Questionnaire Answer Date Recorded Do you feel stress - tense, restless, nervous, or anxious, or unable to sleep at night because your mind is troubled all the time - these days? Rather much 12/18/2021 Exercise Vital Sign Answer Date Recorde d On average, how many days pe r week do you engage in moderate to strenuous exercise (like a brisk walk)? 0 days 12/18/2021 On average, how many minutes do you engage in exercise at this level? 0 min 12/18/2021 Hunger Vital Sign Answer Date Recorded Within the past 12 months, y ou worried that your food would run out before you got the money to buy more. Never true 12/19/19 Within the past 12 months, t he food you bought just didn't last and you didn't have money to get more. Never true 12/18/2021 PRAPARE - Transportation Answer Date Re corded In the past 12 months, has l ack of transportation kept you from medical appointments or from getting medications? No 11/30 In the past 12 months, has l ack of transportation kept you from meetings, work, or from getting things needed for daily living? No 12/18/2021 Housing Stability Vital Sign Answer Lanre e Recorded In the last 12 months, was t here a time when you were not able to pay the mortgage or rent on time? No 12/18/2021 Number of Places Lived in the Last Year Not on f ile 12/18/2021 In the last 12 months, was t here a time when you did not have a steady place to sleep or slept in a longterm (including now)? No 12/18/2021 Personal Safety Answer Date Recorded Have you ever been in or are you currently in a harmful physical or emotional relationship or is someone making you feel afraid or unsafe? Denies 04/13/2025 Education Answer Date Recorded What is the highest level of school you have completed or the highest degree you have received? 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[employer] Gender Identity Not on file Sexual Orientation Not on file Obstetrics History Last Filed Vital Signs Vital Sign Reading Time Taken Comments Blood Pressure 125/68 04/13/2025 11:15 AM CDT Pulse 58 04/13/2025 11:15 AM CDT Temperature 36.4 C (97.5 F) 04/13/2025 10:02 AM CDT Respiratory Rate 16 04/13/2025 10:02 AM CDT Oxygen Saturation 97% 04/13/2025 11:15 AM CDT Inhaled Oxygen Concentration - - Weight 79.4 kg (175 lb) 04/13/2025 10:02 AM CDT Height 175.3 cm (5' 9) 04/13/2025 10:02 AM CDT Body Mass Index 25.84 04/13/2025 10:02 AM CDT Plan of Treatment Health Maintenance Due Date Last Done Comments Albumin Creatinine Ratio, Urine 1966 Colon Cancer Screening-Colonoscopy 1966 Prostate Cancer Screening-PSA 1966 Dilated Eye Exam 1966 Foot Exam 1966 Regular Well Visit/Exam 18-64 02/05/1984 Pneumococcal vaccine <65 (2 of 2 - PCV) 05/11/2013 05/11/2012 Zoster Vaccine (1 of 2) 02/05/2016 Depression Screening 09/26/2021 09/26/2020, 10/29/2019, 10/29/2019, Additional history exists Lipid Panel 08/31/2022 08/31/2021, 07/31, 10/06/2020, Additional history exists DTaP/Tdap/Td Vaccine (2 - Td or Tdap) 02/05/2024 2014 Hemoglobin A1C 10/02/2024 04/01/2024, 09/0 11/2021, 08/31/2021, Additional history exists eGFR 04/26/2025 04/26/2024, 03/31, 04/18/2024, Additional history exists Covid-19 Vaccine ( - 2024-2 6 season) 2025 08/18/2021, 06/22/2021, 02/07/2021 Influenza Vaccine (#1) 2025 , 07/09/2021, 10/09/2020, Additional history exists Hepatitis B Screening Completed 03/27/2014, 013 Colon Cancer Screening-FIT Discontinued 08/25/2018 Hepatitis C Screening Completed 03/22/2020, 018 Procedures Procedure Name Priority Date/Time Associated Diagnosis Comments XR HIP RIGHT 2 OR 3 VIEWS ED 04/13/2025 10:21 AM CDT EGFR STAT 04/26/2024 10:17 AM CDT HEMOGLOBIN A1C Timed 04/01/2024 4:43 AM CDT LIPID PANEL STAT 08/18/2021 1:57 PM [employer] HEPATITIS PANEL, ACUTE Routine 03/22/2020 6:24 AM CDT OCCULT BLOOD, FECAL (FIT) Routine 08/25/2018 12:08 AM DIE [employer] from Last 3 Months or Most Recently Relevant to Health Maintenance Results * XR Hip Right 2 or 3 Views (04/13/2025 10:21 AM CDT) Anatomical Region Laterality Modality Lower Extremities, Hip, Pelvis Right C omputed Radiography 04/13/2025 10:4 9 AM CDT Narrative 04/13/2025 10:52 AM CDT EXAM DESCRIPTION: XR HIP RIGHT 2 OR 3 VIEWS REASON FOR STUDY: pain, c/f fx R hip pain. Pt reports increase in generalized weakness and stating he knows he needs a hip replacement but that he hasn't been able to get in. TECHNIQUE: Two views of the right hip COMPARISON: 04/18/2024. FINDINGS: Alignment is normal. There is moderate right hip osteoarthritis. No acute fracture or aggressive bone lesion is seen. Pelvic phleboliths is noted. A metallic object projects in the region of the medial left thigh. IMPRESSION: No radiographic evidence of acute fracture. Moderate right hip osteoarthritis. THIS IS AN ELECTRONICALLY VERIFIED FINAL REPORT 04/13/2025 10:52 AM - Electronically signed by Jj Iniguez M.D. MZ: ABHILASH Report ID: [id number] Reading Location: [id number] Procedure Note Jj Iniguez MD - 04/13/2025 EXAM DESCRIPTION: XR HIP RIGHT 2 OR 3 VIEWS REASON FOR STUDY: pain, c/f fx R hip pain. Pt reports increase in generalized weakness and stating heknows he needs a hip replacement but that he hasn't been able to get in. TECHNIQUE: Two views of the right hip COMPARISON: 04/18/2024. FINDINGS: Alignment is normal. There is moderate right hip osteoarthritis. Noacute fracture or aggressive bone lesion is seen. Pelvic phleboliths is noted.A metallic object projects in the region of the medial left thigh. IMPRESSION: No radiographic evidence of acute fracture. Moderate right hiposteoarthritis. THIS IS AN ELECTRONICALLY VERIFIED FINAL REPORT 04/13/2025 10:52 AM - Electronically signed by Jj Iniguez M.D. MZ: MZ Report ID: [id number] Reading Location: [id number] us Jose Eduardo Mack MD IMG XR PROCEDURES F inal Result * eGFR (04/26/2024 10:17 AM CDT) eGFR >90 >=60 mL/min/1. 73 m2 Comment: Interpretive Data Reference Interval Normal >/= 90 mL/min/1.73m2 Mildly decreased* 60 - 89 mL/min/1.73m2 Mildly to moderately decreased 45 - 59 mL/min/1.73m2 Moderately to severely decreased 30 - 44 mL/min/1.73m2 Severely decreased 15 - 29 mL/min/1.73m2 Kidney Failure < 15 mL/min/1.73m2 *Relative to young adult level Estimated glomerular filtration rate is determined by the 2020 CKD-EPI equation recommended by the National Kidney Foundation (A Unifying Approach to GFR Estimation: Recommendations of the NKF-ASK Task Force on Reassessing the Inclusion of Race in Diagnosing Kidney Disease, JASN 202). The CKD-EPI equation should not be used for patients with unstable renal function and has not been validated in children and those over 70. Current interpretive data was last reviewed 2021. Blood 04/26/2024 10:1 7 AM CDT 04/26/2024 10:30 AM CDT Chun Nunez MD LAB BLOOD ORDERABLES Final Resul t Performing Organization Address City/[facility] Co de Phone Number [facility] Department [place] [address] * (ABNORMAL) Hemoglobin A1c (04/01/2024 4:43 AM CDT) Hgb A1C 14.6(H) 4.0 - 5.6 % Estimated Average Glucose 372 mg/dL [facility] Comment: The ADA recommends reporting an estimated Average Glucose (eAG) with all Hemoglobin A1c results using the equation derived from a study of 507 normal and diabetic adults. Minority populations were underrepresented and children were not included. (Diabetes Care 2020; 43(S1): S66-S76). The eAG is not equivalent to a fasting glucose. Blood 04/01/2024 4:43 AM CDT 04/01/2024 4:55 AM CDT Surya Kendall MD LAB BLOOD ORDERABLES F inal Result Performing Organization Address City/[facility] Co de Phone Number [facility] Department [place] [address] * (ABNORMAL) Lipid panel (08/18/2021 1:57 PM DIE [employer]) Cholesterol 163 30 - 199 mg/dL [facility] Comment: Interpretive Data Ages < or = 19 years Acceptable: <170 mg/dL Borderline high: 170-199 mg/dL High: >or= 200 mg/dL Ages > or = 20 years Desirable: <200 mg/dL Borderline high: 200-239 mg/dL High: >or= 240 mg/dL Literature References: 1. Expert Panel on Integrated Guidelines for Cardiovascular Health and Risk Reduction in Children and Adolescents. Pediatrics 2011;128:S213 2. NCEP Expert Panel. Circulation 2004;110:227 Current Interpretive Data was last revised on 2018. Triglycerides 39 <=149 mg/dL [facility] Comment: Interpretive Data Ages < or = 9 years Acceptable: <75 mg/dL Borderline high: 75-99 mg/dL High: >or= 100 mg/dL Ages 10 to 20 years Acceptable: <90 mg/dL Borderline high: 90-129 mg/dL High: >or= 130 mg/dL Ages > or = 20 years Desirable: <150 mg/dL Borderline high: 150-199 mg/dL High: 200-499 mg/dL Very high: >or= 499 mg/dL Literature References: 1. Expert Panel on Integrated Guidelines for Cardiovascular Health and Risk Reduction in Children and Adolescents. Pediatrics 2011;128:S213 2. NCEP Expert Panel. Circulation 2004;110:227 Current Interpretive Data was last revised on 2018. HDL 36(L) >=40 mg/dL [facility] Comment: Interpretive Data Ages < or = 19 years Acceptable: >45 mg/dL Borderline low: 40-45 mg/dL Low: <40 mg/dL Ages > or = 20 years Desirable: >or= 60 mg/dL Low: <40 mg/dL Literature References: 1. Expert Panel on Integrated Guidelines for Cardiovascular Health and Risk Reduction in Children and Adolescents. Pediatrics 2011;128:S213 2. NCEP Expert Panel. Circulation 2004;110:227 Current Interpretive Data was last revised on 2018. LDL, calculated 119 <=129 mg/dL [facility] Comment: Interpretive Data Ages < or = 19 years Acceptable: <110 mg/dL Borderline high: 110-129 mg/dL High: >or= 130 mg/dL Ages > or = 20 years Optimal: <100 mg/dL Near optimal: 100-129 mg/dL Borderline high: 130-159 mg/dL High: >160 mg/dL Literature References: 1. Expert Panel on Integrated Guidelines for Cardiovascular Health and Risk Reduction in Children and Adolescents. Pediatrics 2011;128:S213 2. NCEP Expert Panel. Circulation 2004;110:227 Current Interpretive Data was last revised on 2018. Non-HDL Cholesterol 127 mg/dL [facility] Comment: Interpretive Data Ages < or = 19 years Acceptable: <120 mg/dL Borderline high: 120-144 mg/dL High: >145 mg/dL Ages > or = 20 years When triglycerides are >200 mg/dL, Non-HDL cholesterol is a secondary target of therapy with treatment goals that are 30 mg/dL greater than the LDL cholesterol target. Literature References: 1. Expert Panel on Integrated Guidelines for Cardiovascular Health and Risk Reduction in Children and Adolescents. Pediatrics 2011;128:S213 2. NCEP Expert Panel. Circulation 2004;110:227 Current Interpretive Data was last revised on 2018. Chol/HDL ratio 5 [facility] Blood 08/18/2021 1:57 PM [employer] 08/18/2021 2:04 PM D[employer] us Daniel Rodriguez MD LAB BLOOD ORDERABLES Final Res ult [facility] [place] [address] * Hepatitis panel, acute (03/22/2020 6:24 AM CDT) HepBsAg NONREACT NONREACTIVE [facility] Comment: Siemens CentaurXP using BERRY (chemiluminescent immunoassay) technology. NONREACTIVE: IgM antibodies to Hepatitis B Surface antigen not detected. REACTIVE: IgM antibodies to Hepatitis B Surface antigen detected. Reactive results will be confirmed by neutralization testing. HBsAb qn 9.01 mIU/mL [facility] Comment: Siemens CentaurXP using BERRY (chemiluminescent immunoassay) technology. 9.99 IU/L or less.....NONREACTIVE: IgM antibodies to Hepatitis B Surface antibody are not detected. 10.00 IU/L or greater..REACTIVE: IgM antibodies to Hepatitis B Surface antibody are detected. Hep B core IgM NONREACT NONREACTIVE [facility] Comment: Siemens CentaurXP using BERRY (chemiluminescent immunoassay) technology. NONREACTIVE: IgM antibodies to Hepatitis B Core antigen not detected. EQUIVOCAL: IgM antibodies to Hepatitis B Core antigen may or may not be present. Obtain a new specimen and retest. REACTIVE: IgM antibodies to Hepatitis B Core antigen detected. Hep A IgM NONREACT NONREACTIVE [facility] Comment: Siemens CentaurXP using BERRY (chemiluminescent immunoassay) technology. NONREACTIVE: IgM antibodies to Hepatitis A not detected. This does not exclude possibility of exposure to Hepatitis A or early acute infection. EQUIVOCAL:IgM antibodies to Hepatitis A may or may not be present. Suggest recollection and retest. REACTIVE: Antibodies to Hepatitis A detected. Hep C Ab NONREACT NONREACTIVE [facility] Comment: Siemens CentaurXP using BERRY (chemiluminescent immunoassay) technology. NONREACTIVE: Antibodies to Hepatitis C not detected. This does not exclude early acute Hepatitis C infection, possibility of exposure to Hepatitis C, antibodies below detection limit, or to lack of antibody reactivity to the antigen used in this assay. EQUIVOCAL: Antibodies to Hepatitis C may or may not be present. Sample to be confirmed by real-time PCR method. REACTIVE: Antibodies to Hepatitis C detected.Sample to be confirmed by real-time PCR method. 03/22/2020 6:24 AM CDT 03/22/2020 6:29 AM CDT Narrative [facility] - 03/22/2020 8:51 AM CDT Comment add this test the blood drawn today Resulting Agency Comment IN us Nicko Jacobs MD LAB MICROBIOLOGY - NERAL ORDERABLES Final Result [facility] [address] [phone] * Occult blood, fecal non neoplasm screening (08/25/2018 12:08 AM DIE [employer]ER [employer]) Occult blood, fecal Negative Negative [facility] Collection date , feces [id number] [facility] Collection time , feces 7 [facility] Stool 08/25/2018 12:0 8 AM [employer] 08/25/2018 1:17 AM D[employer] Narrative [facility] - 08/25/2018 1:29 AM DIE [employer] us Oniel Gramajo MD LAB BODY FLUIDS AND STOO LS ORDERABLES Final Result [facility] 1 [facility] Department [place] [address] from Last 3 Months or Most Recently Relevant to Health Maintenance Insurance [facility] [facility] Advance Directives For more information, please contact: [phone] * Full Code (Latest Code Status on File) Date Activated Date Inactivated Comments 04/01/2024 8:56 AM 04/01/2024 7:55 PM * Full Code Date Activated Date Inactivated Comments 12/17/2021 5:59 PM 12/20/2021 7:23 PM * Full Code Date Activated Date Inactivated Comments 09/07/2021 12:46 PM 09/08/2021 6:41 PM * Full Code Date Activated Date Inactivated Comments 08/18/2021 3:06 PM 08/20/2021 3:16 PM * Full Code Date Activated Date Inactivated Comments 09/27/2020 1:21 AM 09/28/2020 4:46 PM Care Teams Dramatic Director Relationship Specialty Start Date End Date Jeovany Rabago MD [address] [place] [id number] PCP - General Internal Medicine 05/03/25 Fabian Philip MD Consulting Physician Gastroenterology 08/25/18 Janeth Galeano Parts Sales Advisor Addiction Medicine 08/21/20 Miscellaneous, Not In File 09/28/20
--- OUTSIDE RECORDS SUMMARY | 2025-05-23 11:46 | XMS_ITS | Clinical Summary ---
Author Organization [facility] Address [address] [place] [address] Phone Care Team Providers Care Internet Sales Associate Name Role Phone Provider, None Primary Care [...] or Severe pain. 10 Tablet 1 Active amLODIPine (NORVASC) 10 MG Tablet Take 10 mg by mouth daily. 2 Active aspirin 81 MG Chewable Tablet Take 81 mg by mouth daily. 9 Active atorvastatin (LIPITOR) 20 MG Tablet Take 20 mg by mouth daily. 2 Active DULoxetine (CYMBALTA) [address] Particles Take 60 mg by mouth daily. 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 Care Teams Internet Sales Associate Relationship Specialty Start Date End Date Provider, None [place] PCP - General 10/20/15 Provider, None [place] 10/20/15
[2025-05-23] MEDS: HYDROcodone/acetaminophen (*CRX) 5-325 MG TABLET 2 TAB PO (12:08)
--- NOTE | 2025-05-23 12:57 | ED.GENADULT ---
HPI - General Adult General Chief complaint: Fall Stated complaint: fell twice yesterday, hit head Time Seen by Provider: 05/23/25 11:10 History of Present Illness HPI narrative: This is a 60-year-old male presenting ED for right hip pain. Patient has a history of esjo-yn-yxyo arthritis and is scheduled for a right hip replacement at [facility] next month. Patient says that was walking yesterday when his hip gave out and he fell striking his head. He does not use blood thinners. No loss of consciousness. Related Data Allergies Allergy/AdvReac Type Severity Reaction Status Date / Time haloperidol Allergy Mild BLACKOUT Verified 05/23/25 11:20 ibuprofen Allergy Mild RASH Verified 05/23/25 11:20 risperidone Allergy Mild PANCREATITI Verified 05/23/25 11:20 S HALOPERIDOL LACTATE Allergy Mild BLACKOUT Uncoded 03/14/25 06:07 Exam Narrative: APPEARANCE: Patient is malodorous, he is wearing hospital socks, he has luggage with him Head: atraumatic. EYES: EOMI, NOSE: Atraumatic NECK: Trachea midline RESPIRATORY: No increased rate of breathing CARDIOVASCULAR: RRR, +2 pulses in all extremities ABDOMINAL: Non-distended MUSCULOSKELETAl: No obvious deformities, patient ambulated into the ED. pain with internal external rotation of the right leg. NEURO: Alert. Cranial nerves 2-12 grossly intact. Moving for 4 extremities. SKIN:: Warm, dry. Normal color PSYCHIATRIC: Normal affect Course Vital Signs Vital signs: Vital Signs Temperature 97.9 F 05/23/25 11:05 Pulse Rate 81 05/23/25 11:05 Respiratory Rate 17 05/23/25 11:05 Blood Pressure 152/93 H 05/23/25 11:05 Pulse Oximetry 98 05/23/25 11:05 Oxygen Delivery Room Air 05/23/25 11:05 Temperature 97.8 F 05/23/25 11:16 Pulse Rate 87 05/23/25 11:16 Respiratory Rate 16 05/23/25 11:16 Blood Pressure 149/90 H 05/23/25 11:16 Pulse Oximetry 96 05/23/25 11:16 Oxygen Delivery Room Air 05/23/25 11:16 Medical Decision Making MDM Narrative Medical decision making narrative: -Course: 60-year-old male with history of right hip arthritis presenting after fall. CT head C-spine chest x-ray and hip x-ray were negative for acute fractures. Patient's pain was treated in the emergency department. Patient be discharged follow-up with his orthopedic surgeon. -DDX includes but is not limited to: Osteoarthritis, hip fracture Vital Signs Vital Signs: Vital Signs Temperature 97.9 F 05/23/25 11:05 Pulse Rate 81 05/23/25 11:05 Respiratory Rate 17 05/23/25 11:05 Blood Pressure 152/93 H 05/23/25 11:05 Pulse Oximetry 98 05/23/25 11:05 Oxygen Delivery Room Air 05/23/25 11:05 Temperature 97.8 F 05/23/25 11:16 Pulse Rate 87 05/23/25 11:16 Respiratory Rate 16 05/23/25 11:16 Blood Pressure 149/90 H 05/23/25 11:16 Pulse Oximetry 96 05/23/25 11:16 Oxygen Delivery Room Air 05/23/25 11:16 Discharge Plan Discharge Clinical Impression: Chronic hip pain Patient Disposition: Home Condition: Stable Instructions: Antibiotic Form, Hip Pain (ED) Additional Instructions: You were seen in the emergency department for hip pain. Please use Tylenol as needed. Follow-up with your orthopedic surgeon for further management. Patient Language: Czech Prescriptions: No Action hydrocodone-acetaminophen 5-325 mg tablet 1 tablet PO Q8H PRN (Reason: pain) Qty: 8 0RF hydrocodone-acetaminophen 5-325 mg tablet 1 tablet PO Q8H PRN (Reason: pain) Qty: 8 0RF Follow-up/Referrals: Jeovany Rabago MD [Primary Care Provider, Hospitalist]
== END 2025-05-23 13:14 | disposition home or self-care (01) ==
PROVIDERS: Emergency Provider Emergency Medicine; PCP Internal Medicine
DX: M25.551 Pain in right hip (principal); G89.29 Other chronic pain; W19.XXXA Unspecified fall, initial encounter; M16.11 Unilateral primary osteoarthritis, right hip
CPT/HCPCS: 70450; 71045; 72125; 73502; 99284; A9270